=== PATIENT | female | born 1995 ===

== ENCOUNTER 2021-07-28 09:17 | Emergency (ER) | payer SELFPAY ==
[~2021-07-28] VITALS: Ht 162.6 cm; Wt 73.0 kg
[2021-07-28 10:12] VITALS: BP 117/58
[2021-07-28] MEDS ORDERED: cefTRIAXone SOD 1,000 MG VL IM ONE (10:15)
== END 2021-07-28 10:28 | disposition home or self-care (01) ==
LOC: ER 09:17
DX: J03.90 Acute tonsillitis, unspecified (principal); H66.92 Otitis media, unspecified, left ear; I88.9 Nonspecific lymphadenitis, unspecified
CPT/HCPCS: 96372; 99283; J0696